=== PATIENT | male | born 2000 | race Asian ===

== ENCOUNTER 2024-12-05 03:13 | Emergency (ER) | payer OTHER ==
[~2024-12-05] VITALS: Ht 170.2 cm; Wt 79.1 kg
[2024-12-05 03:21] VITALS: O2SAT 99
[2024-12-05 03:24] VITALS: BP 148/84; PULSE 98; RESP 18; TEMP 37; O2SAT 100
[2024-12-05] MEDS ORDERED: TRAZ-251 MT (04:03)
[2024-12-05] MEDS: LORAZEPAM 1MG TABLET PO ONE (04:08)
== END 2024-12-05 04:39 | disposition home or self-care (01) ==
LOC: ER 03:37
DX: F41.9 Anxiety disorder, unspecified (principal); F17.290 Nicotine dependence, other tobacco product, uncomplicated; Z79.899 Other long term (current) drug therapy
CPT/HCPCS: 99283